=== PATIENT | female | born 1970 | race Caucasian/White ===

== ENCOUNTER 2020-10-09 13:06 | Emergency (ER) | payer BC, OTHER, SELFPAY ==
[2020-10-09 13:42] VITALS: BP 128/70; PULSE 73; RESP 20; TEMP 36.6; O2SAT 98; BMI 38.9
--- NOTE | 2020-10-09 13:49 | HMH.EDUTC ---
[facility] [place] Clinical Impression: Exposure to COVID-19 virus Disposition: Home, Self-Care Condition on Discharge: Good Instructions: Preventing the Spread of Coronavirus Discharge Instructions Additional Instructions: Drink plenty of fluids. Take tylenol for pain or fever. Return if you begin to have difficulty breathing. Follow up with your regular doctor. GO TO THE ER FOR ANY WORSENING SYMPTOMS Referrals: Gwen Loco APRN [Primary Care Provider] - Forms: Work/School Release Time of Disposition: 13:50 Medical Decision Making - Medical Records Medical records reviewed: No: I reviewed the patient's medical records. - Joe Inquiry Pt receiving controlled substance: No Vital Signs: 10/09/20 13:42 Temperature 97.9 F Temperature Source Oral Pulse Rate [Radial] 73 Respiratory Rate 20 Blood Pressure [Right Arm] 128/70 Blood Pressure Mean [Right Arm] 89 Blood Pressure Source [Right Arm] Automatic Cuff Blood Pressure Position [Right Arm] Sitting 02 Sat by Pulse Oximetry 98 Oxygen Delivery Method Room Air Orders (Tests/Meds): ORDERS Category Date Time Status Covid-19 Nasal PCR ([facility]) Routine Lab 10/09/20 13:45 Ordered [facility] [place] HPI - General Stated complaint: covid exposure Time Seen by Provider: 10/09/20 13:49 Mode of Arrival: Ambulatory Source of Information: Patient Limitations: No Limitations Description of Symptoms (Recalled from Triage Doc. by RN): covid test HEENT Symptoms (Recalled from RN notes): No Resp Symptoms (Recalled from RN notes): No Skin Symptoms (Recalled from RN notes): No MS Symptoms (Recalled from RN notes): No Functional Status (Recalled from RN notes): wnl - History of Present Illness Provider Complaint: Her daughter tested positive for covid yesteday. This patient has not had any symptoms so far. - Related Data Allergies Allergy/AdvReac Type Severity Reaction Status Date / Time Penicillins Allergy Verified 10/09/20 13:44 - Worker's Comp Is this a Worker's Comp case?: No [facility] History - Hepatitis A Screen Drug use history?: No High risk sexual behaviors?: No History of sexually transmitted infection?: No Currently employed?: No Childcare worker?: No Do you have indoor plumbing?: Yes Do you have electricity?: Yes Attestation statement:: This patient has been screened for Hepatitis A risk factors. I have reviewed the patient's past medical history: Yes - Social History Alcohol Intake: never Occupational Status: other ROS Obtained: Yes All systems reviewed & no additional complaints - Constitutional Constitutional: Reports system reviewed and no additional complaints, except as docu - Eyes Eyes: Reports system reviewed and no additional complaints, except as docu - ENT Ears, Nose, Mouth, and Throat: Reports system reviewed and no additional complaints, except as docu - Cardiovascular Cardiovascular: Reports system reviewed and no additional complaints, except as docu - Respiratory Respiratory: Yes system reviewed and no additional complaints, except as docu - Gastrointestinal Gastrointestingal: Reports: system reviewed and no additional complaints, except as docu Physical Exam - General General appearance: alert, in no apparent distress - Head Head exam: atraumatic, normocephalic, normal inspection - Eye Eye exam: Present: normal appearance, PERRL, EOMI - ENT ENT exam: Present: normal exam, normal oropharynx, mucous membranes moist, TM's normal bilaterally, normal external ear exam - Neck Neck exam: Present: normal inspection, full ROM, trachea midline. Absent: meningismus, lymphadenopathy - Chest Chest inspection: Present: normal inspection, symmetric chest wall rise. Absent: tenderness - Respiratory Respiratory exam: Present: normal lung sounds bilaterally. Absent: respiratory distress - Cardiovascular Cardiovascular exam: Present: regular rate, normal rhythm. Absent: JVD - Abd
[2020-10-09 14:00] VITALS: BP 128/70; PULSE 73; RESP 20; TEMP 36.6; O2SAT 98
== END 2020-10-09 14:02 | disposition home or self-care (01) ==
PROVIDERS: Emergency Provider Nurse Practitioner Family; PCP Nurse Practitioner
DX: Z20.828 Contact with and (suspected) exposure to other viral communicable diseases (principal)
CPT/HCPCS: 99201; U0003

== ENCOUNTER 2021-01-03 05:26 | Emergency (ER) | payer BC, OTHER, SELFPAY ==
[2021-01-03 05:39] VITALS: BP 140/70; PULSE 78; RESP 18; TEMP 36.9; O2SAT 100; BMI 35.4
--- NOTE | 2021-01-03 05:47 | CT_ITS ---
PROCEDURE: CT ABDOMEN PELVIS WO CON CLINICAL INDICATION: Left flank pain Left flank pain with nausea and vomiting COMPARISON: No exams were available for comparison TECHNIQUE: Axial images obtained with sagittal and coronal reformats. All CT scans at the facility use one or more dose reduction, viz: automated exposure control, ma/kV adjustment per patient size (including targeted exams where dose is matched to indication, i.e. head), or iterative reconstruction technique. FINDINGS: There is a small hiatal hernia. The liver, spleen, adrenal glands, and pancreas have an unremarkable unenhanced CT appearance. 2 mm punctate stone lower pole right kidney. There is mild left hydronephrosis and hydroureter secondary to a 4 mm stone in the distal left ureter approximately 3 cm proximal to the ureterovesical junction. There are multiple pelvic phleboliths. There is an IUD in place. No evidence of appendicitis. There is mild thickening of the lower aspect of the descending colon nonspecific. There is colonic diverticulosis but no evidence of diverticulitis. No acute bony findings. There is a corrugated area within the L2 vertebral body on the right at 17 mm consistent with a hemangioma. IMPRESSION: 4 mm left distal ureteral stone with mild left-sided hydroureteronephrosis Mild thickening of the distal descending colon which may be due to nondistention or mild colitis. Dictated by: Dung Vera MD 01/03/2021 09:17 Dung Vera MD in [place] 01/03/2021 09:17
[2021-01-03 05:59] LABS: Appearance,Urine CLEAR (Clear); Basophils # 0.1 K/mm3 (0-0.2); Basophils % 0.6 % (0.1-2.0); Bilirubin,Urine Negative (Negative); Blood, Urine 3+ (Negative); Color,Urine YELLOW (Yellow); Eosinophils % 0.3 % (0.1-12.0); Glucose,Urine (UA) Negative (Negative); Hematocrit 40.3 % (37.0-47.0); Ketones,Urine TRACE (Negative); Leukocyte Esterase,Urine Negative (Negative); Lymphocytes # 1.4 K/mm3 (0.7-4.5); Mean Corpuscular HGB Conc 32.3 g/dL (31.8-35.4); Mean Corpuscular Hemoglobin 29.7 pg (27.0-31.2); Mean Corpuscular Volume 92.1 fl (81-99); Mean Platelet Volume 7.8 fl (7.4-10.4); Microscopic, Urine URINE MICROSCOPIC (MICROSCOPIC); Monocytes # 0.5 K/mm3 (0.1-1.0); Monocytes % 4.7 % (1.7-9.3); Neutrophils # 7.8 K/mm3 (1.8-7.8); Neutrophils % 80.5 % (37.0-80.0); Nitrate,Urine Negative (Negative); PH,Urine 5.5 (5.0-8.5); Platelet Count 276 K/mm3 (142-424); Protein,Urine TRACE (Negative); Red Blood Count 4.37 M/mm3 (4.20-5.40); Red Cell Distribution Width 12.5 % (11.5-17.5); Specific Gravity, Urine >= 1.030 (1.005-1.030); Urobilinogen,Urine 0.2 EU/dl (0.2); White Blood Count 9.6 K/mm3 (4.8-10.8)
[2021-01-03 06:03] LABS: Urine Pregnancy, HCG Qual. Negative (Negative)
[2021-01-03 06:12] LABS: Alanine Aminotransferase 14 U/L (12-78); Albumin Level 5.1 g/dl (3.5-5.0); Albumin/Globulin Ratio 1.4 (1.1-1.8); Alkaline Phosphatase 90 U/L (38-126); Amylase 61 U/L (30-110); Aspartate Amino Transferase 26 U/L (14-36); Bilirubin,Total 0.5 mg/dl (0.2-1.3); Blood Urea Nitrogen 20 mg/dl (7-17); Calcium 10.3 mg/dl (8.4-10.2); Carbon Dioxide 28 mmol/L (22.0-30.0); Chloride 102 mmol/L (98-107); Creatinine Clearance Estimated 108 mL/min (50-200); Estimated Glomerular Filt Rate 67 ml/min (>60); GFR (African American) 81 ML/MIN (>60); Globulin 3.7 g/dL (1.3-3.2); Glucose 133 mg/dl (74-100); Lipase 73 U/L (23-300); Sodium 135 mmol/L (136-145); Total Protein,Serum 8.8 g/dl (6.3-8.2)
[2021-01-03 06:18] LABS: C-Reactive Protein 1.9 mg/L (0-4)
[2021-01-03 06:22] LABS: Bacteria,Urine Trace /lpf; WBC,Urine Occasional #/hpf (0-3)
[2021-01-03 06:23] LABS: Erythrocyte Sedimentation Rate 16 mm/hr (0-20)
[2021-01-03 06:32] LABS: Procalcitonin 0.047 ng/mL (0.0-2.0)
--- NOTE | 2021-01-03 06:34 | HMH.EDGENADL ---
ED Disposition Clinical Impression: Renal colic on left side Disposition: Home, Self-Care Condition on Discharge: Good Instructions: DI for Kidney Stones Additional Instructions: fluids and use meds and see urology as needed Prescriptions: Tamsulosin HCl [Flomax 0.4mg capsule] 0.4 mg PO HS #7 cap Transmission Status: Pending to [facility] #[id number] Ketorolac Tromethamine [Toradol 10mg tablet] 10 mg PO Q6H 3 Days #12 tab Transmission Status: Pending to [facility] #[id number] Referrals: PCP,No [Primary Care Provider] - - Critical Care Critical Care Time: No Attestation: On 01/03/21, the high probability of a clinically significant, sudden or life threatening deterioration of the following system(s) required my full and direct attention, intervention and personal management. The time I documented below is in addition to time spent performing reported procedures but includes the following listed in this critical care notation. Medical Decision Making - Medical Records Medical records reviewed: Yes: I reviewed the patient's medical records. - Joe Inquiry Pt receiving controlled substance: No Vital Signs: 01/03/21 05:39 Temperature 98.4 F Temperature Source Oral Pulse Rate [Right] 78 Respiratory Rate 18 Blood Pressure [Right Arm] 140/70 Blood Pressure Mean [Right Arm] 93 Blood Pressure Source [Right Arm] Automatic Cuff Blood Pressure Position [Right Arm] Sitting 02 Sat by Pulse Oximetry 100 Oxygen Delivery Method Room Air - Lab Data Lab results reviewed: Yes: I reviewed the patient's lab results. Lab Results 01/03/21 05:49: Urine Color Yellow, Urine Appearance Clear, Urine pH 5.5, Ur Specific [place] >= 1.030, Urine Protein Trace, Urine Glucose (UA) Negative, Urine Ketones Trace, Urine Blood 3+, Urine Nitrate Negative, Urine Bilirubin Negative, Urine Urobilinogen 0.2, Ur Leukocyte Esterase Negative, Urine RBC 10-20, Urine WBC Occasional, Ur Squamous Epith Cells 3-5, Urine Bacteria Trace 01/03/21 05:49: WBC 9.6, RBC 4.37, Hgb 13.0, Hct 40.3, MCV 92.1, MCH 29.7, MCHC 32.3, RDW 12.5, Plt Count 276, MPV 7.8, Neut % (Auto) 80.5 H, Lymph % (Auto) 14.0, [place] % (Auto) 4.7, Eos % (Auto) 0.3, Baso % (Auto) 0.6, Neut # (Auto) 7.8, Lymph # (Auto) 1.4, [place] # (Auto) 0.5, Eos # (Auto) 0.0, Baso # (Auto) 0.1, ESR 16 01/03/21 05:49: Urine HCG, Qual Negative 01/03/21 05:49: Sodium 135 L, Potassium 4.0, Chloride 102, Carbon Dioxide 28, Anion Gap 9.0, BUN 20 H, Creatinine 0.90, Estimated Creat Clear 108, Estimated GFR 67, Est GFR ( Amer) 81, Glucose 133 H, Calcium 10.3 H, Total Bilirubin 0.5, AST 26, ALT 14, Alkaline Phosphatase 90, C-Reactive Protein 1.9, Total Protein 8.8 H, Albumin 5.1 H, Globulin 3.7 H, Albumin/Globulin Ratio 1.4, Amylase 61, Lipase 73 Result diagrams: 01/03/21 05:49 01/03/21 05:49 Orders (Tests/Meds): ED MEDICATIONS Generic Name Dose Route Start Last Admin Trade Name Freq PRN Reason Stop Dose Admin Sodium Chloride 1,000 mls @ 999 mls/hr 01/03/21 06:00 01/03/21 05:50 Sod Chlor 0.9% 1000ml Bag IV 01/03/21 07:00 999 mls/hr .Q1H1M WALTER Administration Discontinued Medications Generic Name Dose Route Start Last Admin Trade Name Freq PRN Reason Stop Dose Admin Ketorolac Tromethamine 30 mg 01/03/21 05:47 01/03/21 05:50 Ketorolac 30mg/Ml Vial IV 01/03/21 05:48 30 mg ONCE ONE Administration Ondansetron HCl 4 mg 01/03/21 05:47 01/03/21 05:50 Ondansetron 4mg/2ml Vial IV 01/03/21 05:48 4 mg ONCE ONE Administration ORDERS Category Date Time Status CT abdomen pelvis wo con Stat Cat Scan 01/03/21 05:47 Taken Amylase Stat Lab 01/03/21 05:49 Results C-Reactive Protein Stat Lab 01/03/21 05:49 Results Comprehensive Metabolic Panel Stat Lab 01/03/21 05:49 Results Lipase Stat Lab 01/03/21 05:49 Results Procalcitonin Stat Lab 01/03/21 05:49 Results - CT Data CT Scan: Abdomen, Pelvis Time Received: 06:[address] R
[2021-01-03 07:06] VITALS: BP 138/68; PULSE 76; RESP 16; TEMP 36.9; O2SAT 99
== END 2021-01-03 07:10 | disposition home or self-care (01) ==
PROVIDERS: Emergency Provider Emergency Medicine
DX: N23 Unspecified renal colic (principal); Z88.0 Allergy status to penicillin
CPT/HCPCS: 74176; 80053; 81001; 81025; 82150; 83690; 84145; 85025; 85651; 86140; 96365; 96375; 99283; J2405

== ENCOUNTER → 2021-03-21 15:30 | Outpatient (CLI) | payer OTHER, SELFPAY ==
--- NOTE | 2021-03-21 15:34 | XR_ITS ---
PROCEDURE: XR KUB CLINICAL INDICATION: ureteral stone COMPARISON: CT CT ABDOMEN PELVIS WO CON from 01/03/2021 FINDINGS: There is calcific density in the left distal ureteral area suspicious for a distal ureteral stone as seen on the previous CT scan. Multiple pelvic phleboliths and an IUD is in place. The lower abdominal image suggest a possible 5 mm stone overlying the lower pole of the right kidney. This however is questionable. IMPRESSION: Suspect left distal ureteral stone. Possible right nephrolithiasis Dictated by: Dung Vera MD 03/21/2021 17:36 Dung Vera MD in [place] 03/21/2021 17:36
== END ==
PROVIDERS: Visit Provider Urology
DX: N20.1 Calculus of ureter (principal)
CPT/HCPCS: 74018

== ENCOUNTER → 2021-04-23 06:46 | Outpatient (CLI) | payer OTHER, SELFPAY ==
--- NOTE | 2021-04-23 06:51 | CT_ITS ---
PROCEDURE: CT ABDOMEN PELVIS WO CON CLINICAL INDICATION: ureteral stone Lt flank pain COMPARISON: CT CT ABDOMEN PELVIS WO CON from 01/03/2021 CR XR KUB from 03/21/2021 TECHNIQUE: Axial images obtained with sagittal and coronal reformats. All CT scans at the facility use one or more dose reduction, viz: automated exposure control, ma/kV adjustment per patient size (including targeted exams where dose is matched to indication, i.e. head), or iterative reconstruction technique. FINDINGS: LOWER THORAX: No acute finding ABDOMEN & PELVIS: The liver, gallbladder, spleen, adrenal glands, and pancreas has an unremarkable unenhanced appearance. A 2 mm nonobstructing stone is present in the lower pole of the right kidney. Previously noted left-sided hydronephrosis has improved. The left distal ureteral calculus as seen on 01/03/2021 has moved slightly distally approximately 1-2 cm proximal to the ureterovesical junction. The calculus measures approximately 6 mm. There is no significant dilatation of the left ureter or renal pelvis. No intestinal obstruction or free air. Unremarkable appearing appendix. There is colonic diverticulosis involving the descending and sigmoid colon no evidence of diverticulitis. There is mild nonspecific thickening of the transverse and descending colon which could be due to nondistention. The there is a small umbilical hernia containing fat. There is an IUD in place. There are multiple pelvic phleboliths. There is a small umbilical hernia which contains fat. No acute bony anomalies apparent. There are mild osteoarthritic changes of the hips. IMPRESSION: 1. 6 mm left distal ureteral calculus just proximal to the ureterovesical junction which is slightly advanced compared to the previous exam. This corresponds to the abnormality noted on the KUB. The left hydronephrosis and hydroureter has resolved. 2. Nonobstructing right renal calculus. 3. Mild thickening of the transverse and descending colon which could be due to nondistention versus colitis. There is colonic diverticulosis without evidence of diverticulitis. Dictated by: Dung Vera MD 04/24/2021 09:51 Dung Vera MD in [place] 04/24/2021 09:51
== END ==
PROVIDERS: PCP Family Medicine; Visit Provider Urology
DX: N20.1 Calculus of ureter (principal)
CPT/HCPCS: 74176

== ENCOUNTER 2021-08-24 19:30 | Emergency (ER) | payer OTHER, SELFPAY ==
[2021-08-24 19:30] VITALS: BP 138/76; PULSE 71; RESP 21; TEMP 36.8; O2SAT 100; BMI 37.2
[2021-08-24 19:31] VITALS: BP 139/98; PULSE 82; RESP 18; TEMP 36.9; O2SAT 99; BMI 37.2
--- NOTE | 2021-08-24 20:15 | CT_ITS ---
PROCEDURE INFORMATION: Exam: CT Abdomen And Pelvis Without Contrast Exam date and time: 08/24/2021 8:15 PM Age: 50 years old Clinical indication: Abdominal pain; Flank; Left lower quadrant (llq); Additional info: Lt flank apin TECHNIQUE: Imaging protocol: Computed tomography of the abdomen and pelvis without contrast. Radiation optimization: All CT scans at this facility use at least one of these dose optimization techniques: automated exposure control; mA and/or kV adjustment per patient size (includes targeted exams where dose is matched to clinical indication); or iterative reconstruction. COMPARISON: CT ABDOMEN PELVIS WO CON 04/23/2021 6:51 AM FINDINGS: Lungs: The visualized lung bases are unremarkable. Liver: Unremarkable noncontrast appearance. Gallbladder and bile ducts: No wall thickening. No calcified stones. No biliary dilation. Pancreas: Unremarkable noncontrast appearance. Spleen: Normal. No splenomegaly. Adrenal glands: Normal. No mass. Kidneys and ureters: There is an 7 x 4 mm calculus at the left ureterovesical junction. There is mild to moderate upstream left ureterectasis and pelvocaliectasis. There is mild asymmetric swelling of the left kidney. This could potentially be further interval migration of the left distal ureteral calculus seen on 04/23/2021, or could be a new calculus. Punctate nonobstructing right lower pole caliceal calculus. No right ureteral calculus or hydronephrosis. Stomach and bowel: There are scattered colonic diverticula, most numerous distally. There is acute diverticulitis of the mid sigmoid colon within the anterior left hemipelvis. There is surrounding fat stranding, but no extraluminal gas or abscess. No upstream colonic or small bowel obstruction. Small hiatal hernia. Appendix: Normal appendix. Intraperitoneal space: No pneumoperitoneum. Trace pelvic free fluid. Inflammatory stranding around the mid sigmoid colon. Vasculature: Unremarkable. No abdominal aortic aneurysm. Lymph nodes: No enlarged lymph nodes. Urinary bladder: No wall thickening. Reproductive: Intrauterine device. There is a 23 mm left ovarian cyst, which is likely benign/physiologic. Bones/joints: No acute fracture. Spondylosis. Hemangioma in the L2 vertebral body. Soft tissues: Small to moderate fat containing umbilical hernia. IMPRESSION: 1. Acute uncomplicated diverticulitis of the mid sigmoid colon. 2. Obstructing 7 x 4 mm calculus at the left ureterovesical junction with mild to moderate upstream hydroureteronephrosis. It is possible this represents continued migration of the previously seen left distal ureteral calculus on CT of 04/23/2021, or it could be a new obstructing stone. In any case, the upstream ureteral and collecting system dilation has increased/worsened since prior. 3. Punctate nonobstructing right lower pole calculus. THIS REPORT CONTAINS FINDINGS THAT MAY BE CRITICAL TO PATIENT CARE. The findings were verbally communicated via telephone conference with SHI FARRIS at 11:25 PM EDT on 08/24/2021. The findings were acknowledged and understood.
[2021-08-24 20:26] LABS: Microscopic, Urine URINE MICROSCOPIC (MICROSCOPIC)
[2021-08-24 20:28] LABS: Basophils # 0.1 K/mm3 (0-0.2); Basophils % 0.6 % (0.1-2.0); Eosinophils # 0.1 K/mm3 (0.0-0.4); Eosinophils % 0.9 % (0.1-12.0); Hematocrit 37.6 % (37.0-47.0); Hemoglobin 12.1 g/dL (12.2-16.2); Lymphocytes # 1.6 K/mm3 (0.7-4.5); Mean Corpuscular HGB Conc 32.2 g/dL (31.8-35.4); Mean Corpuscular Hemoglobin 30.6 pg (27.0-31.2); Mean Corpuscular Volume 94.9 fl (81-99); Mean Platelet Volume 8.4 fl (7.4-10.4); Monocytes # 0.5 K/mm3 (0.1-1.0); Monocytes % 5.1 % (1.7-9.3); Neutrophils # 7.6 K/mm3 (1.8-7.8); Neutrophils % 77.4 % (37.0-80.0); Platelet Count 257 K/mm3 (142-424); Red Blood Count 3.97 M/mm3 (4.20-5.40); Red Cell Distribution Width 12.8 % (11.5-17.5); White Blood Count 9.8 K/mm3 (4.8-10.8)
[2021-08-24 20:38] LABS: Appearance,Urine CLEAR (Clear); Blood, Urine 3+ (Negative); Color,Urine YELLOW (Yellow); Glucose,Urine (UA) Negative (Negative); Ketones,Urine 2+ (Negative); Leukocyte Esterase,Urine 1+ (Negative); Nitrate,Urine Negative (Negative); Protein,Urine 1+ (Negative); Specific Gravity, Urine 1.025 (1.005-1.030); Urobilinogen,Urine 0.2 EU/dl (0.2)
[2021-08-24 20:40] LABS: Urine Pregnancy, HCG Qual. Negative (Negative)
[2021-08-24 20:42] LABS: Chloride 100 mmol/L (98-107); Sodium 139 mmol/L (136-145)
[2021-08-24 20:44] LABS: Alanine Aminotransferase 12 U/L (12-78); Aspartate Amino Transferase 27 U/L (14-36); Bilirubin,Total 0.8 mg/dl (0.2-1.3); Blood Urea Nitrogen 11 mg/dl (7-17); Creatinine Clearance Estimated 146 mL/min (50-200); Estimated Glomerular Filt Rate 89 ml/min (>60); GFR (African American) 108 ML/MIN (>60)
[2021-08-24 20:45] LABS: Albumin Level 4.6 g/dl (3.5-5.0); Albumin/Globulin Ratio 1.3 (1.1-1.8); Alkaline Phosphatase 75 U/L (38-126); Calcium 9.5 mg/dl (8.4-10.2); Carbon Dioxide 26 mmol/L (22.0-30.0); Globulin 3.5 g/dL (1.3-3.2); Glucose 103 mg/dl (74-100); Total Protein,Serum 8.1 g/dl (6.3-8.2)
--- NOTE | 2021-08-24 20:48 | HMH.EDUROGF ---
ED Disposition Clinical Impression: Renal colic on left side, Diverticulitis Disposition: Home, Self-Care Condition on Discharge: Good Instructions: Kidney Stones -- Adult, DI for Diverticulitis Additional Instructions: fluids and see pcp and urology for follow up Prescriptions: metroNIDAZOLE [Flagyl 500mg Tablet] 500 mg PO TID #21 tab Transmission Status: Pending to [facility] #[id number] levoFLOXacin [Levaquin 500mg tab] 500 mg PO DAILY #7 tab Transmission Status: Pending to [facility] #[id number] Referrals: Provider,Referral, [Primary Care Provider] - - Critical Care Critical Care Time: No Attestation: On 08/24/21, the high probability of a clinically significant, sudden or life threatening deterioration of the following system(s) required my full and direct attention, intervention and personal management. The time I documented below is in addition to time spent performing reported procedures but includes the following listed in this critical care notation. Medical Decision Making - Medical Records Medical records reviewed: Yes: I reviewed the patient's medical records. - Joe Inquiry Pt receiving controlled substance: No Vital Signs: 08/24/21 19:30 08/24/21 19:31 Temperature 98.3 F 98.4 F Temperature Source Oral Oral Pulse Rate [Left Brachial] 71 82 Respiratory Rate 21 18 Blood Pressure [Left Arm] 138/76 139/98 H Blood Pressure Mean [Left Arm] 96 111 Blood Pressure Source [Left Arm] Automatic Cuff Blood Pressure Position [Left Arm] Sitting 02 Sat by Pulse Oximetry 100 99 Oxygen Delivery Method Room Air - Lab Data Lab results reviewed: Yes: I reviewed the patient's lab results. Lab Results 08/24/21 20:00: Urine Color Yellow, Urine Appearance Clear, Urine pH 6.0, Ur Specific [place] 1.025, Urine Protein 1+, Urine Glucose (UA) Negative, Urine Ketones 2+, Urine Blood 3+, Urine Nitrate Negative, Urine Bilirubin 2+ A, Urine Urobilinogen 0.2, Ur Leukocyte Esterase 1+ A, Urine RBC 20-50, Urine WBC 5-10, Ur Squamous Epith Cells 3-5, Urine Bacteria Trace 08/24/21 20:00: Urine HCG, Qual Negative 08/24/21 20:06: WBC 9.8, RBC 3.97 L, Hgb 12.1 L, Hct 37.6, MCV 94.9, MCH 30.6, MCHC 32.2, RDW 12.8, Plt Count 257, MPV 8.4, Neut % (Auto) 77.4, Lymph % (Auto) 16.0, [place] % (Auto) 5.1, Eos % (Auto) 0.9, Baso % (Auto) 0.6, Neut # (Auto) 7.6, Lymph # (Auto) 1.6, [place] # (Auto) 0.5, Eos # (Auto) 0.1, Baso # (Auto) 0.1, ESR 118 H 08/24/21 20:06: Sodium 139, Potassium 4.0, Chloride 100, Carbon Dioxide 26, Anion Gap 17.0 H, BUN 11, Creatinine 0.70, Estimated Creat Clear 146, Estimated GFR 89, Est GFR ( Amer) 108, Glucose 103 H, Calcium 9.5, Total Bilirubin 0.8, AST 27, ALT 12, Alkaline Phosphatase 75, C-Reactive Protein 78.1 H, Total Protein 8.1, Albumin 4.6, Globulin 3.5 H, Albumin/Globulin Ratio 1.3, Procalcitonin 0.059 Result diagrams: 08/24/21 20:06 08/24/21 20:06 Orders (Tests/Meds): ED MEDICATIONS Generic Name Dose Route Start Last Admin Trade Name Freq PRN Reason Stop Dose Admin Sodium Chloride 1,000 mls @ 999 mls/hr 08/24/21 21:45 08/24/21 21:38 Sod Chlor 0.9% 1000ml Bag IV 08/24/21 22:45 999 mls/hr .Q1H1M WALTER Administration Discontinued Medications Generic Name Dose Route Start Last Admin Trade Name Freq PRN Reason Stop Dose Admin Sodium Chloride 1,000 mls @ 999 mls/hr 08/24/21 20:30 08/24/21 20:29 Sod Chlor 0.9% 1000ml Bag IV 08/24/21 21:30 999 mls/hr .Q1H1M WALTER Administration Ketorolac Tromethamine 30 mg 08/24/21 20:16 08/24/21 20:29 Ketorolac 30mg/Ml Vial IV 08/24/21 20:17 30 mg ONCE ONE Administration Ondansetron HCl 4 mg 08/24/21 20:16 08/24/21 20:29 Ondansetron 4mg/2ml Vial IV 08/24/21 20:17 4 mg ONCE ONE Administration ORDERS Category Date Time Status CT abdomen pelvis wo con Stat Cat Scan 08/24/21 20:15 Taken Urine Culture Stat Micro 08/24/21 20:00 Received - CT Data CT Scan: Abdomen, Pelvis T
[2021-08-24 20:50] LABS: C-Reactive Protein 78.1 mg/L (0-4)
[2021-08-24 21:00] LABS: Bilirubin,Urine 2+ (Negative)
[2021-08-24 21:03] LABS: Bacteria,Urine Trace /lpf; RBC,Urine 20-50 #/hpf (0-3)
[2021-08-24 21:06] LABS: Erythrocyte Sedimentation Rate 118 mm/hr (0-20)
[2021-08-24 21:36] LABS: Procalcitonin 0.059 ng/mL (0.0-2.0)
[2021-08-24 23:50] VITALS: BP 129/82; PULSE 70; RESP 18; TEMP 36.9; O2SAT 99
== END 2021-08-24 23:52 | disposition home or self-care (01) ==
PROVIDERS: Emergency Provider Emergency Medicine
DX: K57.92 Diverticulitis of intestine, part unspecified, without perforation or abscess without bleeding (principal); N23 Unspecified renal colic
CPT/HCPCS: 74176; 80053; 81001; 81025; 84145; 85025; 85651; 86140; 87086; 96365; 96366; 96375; 99283; J2405

== ENCOUNTER → 2021-09-10 13:16 | Outpatient (CLI) | payer OTHER, SELFPAY | PROVIDERS: Visit Provider Urology | DX: Z01.812 Encounter for preprocedural laboratory examination (principal); Z11.52 Encounter for screening for COVID-19; N20.1 Calculus of ureter | CPT/HCPCS: C9803; U0003; U0005 ==

== ENCOUNTER 2021-09-13 07:36 | Day surgery (SDC) | payer OTHER, SELFPAY ==
[2021-09-09 12:42] VITALS: BMI 37.2
[2021-09-13] VITALS (9 sets, daily range): BP systolic 110–130; BP diastolic 59–83; PULSE 56–66; RESP 14–18; TEMP 36.2–36.9; O2SAT 95–100
--- NOTE | 2021-09-13 | XR_ITS ---
PROCEDURE: XR KUB CLINICAL INDICATION: ureterscopy COMPARISON: CR XR KUB from 03/21/2021 FINDINGS: Fluoroscopy time: 0.38 minutes. 1 image is submitted with the C-arm showing a left ureteral scope and guidewire in place IMPRESSION: Status post left ureteroscopy with fluoroscopic assistance Dictated by: Dung Vera MD 09/13/2021 11:37 Dung Vera MD in [place] 09/13/2021 11:37
[2021-09-13 08:41] LABS: Urine Pregnancy, HCG Qual. Negative (Negative)
--- NOTE | 2021-09-13 09:16 | P.PN_ITS ---
[facility] Anesthesia Checklist - Patient Identification Patient Identification: Arm Band, Verbal (Name & ) - Structural Data Admitted From: Home Planned Operative Procedure/s: Left Ureteroscopy Consent for Planned Operative Procedure(s) Verified: Yes Verified Documents: Surgical Consent - NPO Status Verified Time NPO: 00:00 - Chart Verification Results Verified: HCG - Additional verifications Anesthesia Reactions: No Hx Blood Transfusions: No Blood Transfusion Reaction: No - Cardiovascular Assessment Heart Sounds: S1 & S2 Pulse Rhythm: Regular - Airway Assessment C-Spine Mobility Assessed: Yes TMJ Mobility Assessed: Yes Dentition: Good Dentition - Neurological Assessment Level of Consciousness: Awake, Alert, Appropriate - Anesthesia Plan Anesthesia Risk discussed: Yes ASA Class: II Anesthesia Type: General [facility] History Medical History: Reports:: Kidney Stones Denies:: Cancer, Diabetes Mellitus Type 1, Diabetes Mellitus Type 2, Internal Pacemaker, MRSA, Seizures *Have you ever received a pneumonia vaccine?: No *Have you received a flu vaccine this season?: No Other Medical History: Denies: Blood Transfusion Reaction Anesthesia experience/problems:: no family history Other Surgeries: Yes: No Previous Surgery. No: Pacemaker Amputation: No Fractures: No - *Social History Last grade of school completed: High school graduate Smoking Status: Never smoker Alcohol Intake: never Substance Use Type: denies use *Occupational Status:: employed Housing: house Household Members: spouse *Travel in the last 8 weeks: Inside the [facility] Family Hx:: Cancer, Diabetes, Heart Attack
--- NOTE | 2021-09-13 09:47 | HMH.OPNOTE ---
Date of procedure: 09/13/21 Pre-op Diagnosis:: Left distal ureteral stone Post-op Diagnosis:: No evidence of ureteral stone today. Procedure performed:: Left ureteroscopy Surgeon:: Mohsen Jurado MD RADIO TELEVISION ANNOUNCER:: Other (santhosh) Anesthesia: LMA Estimated blood loss (mL): 0 Clinical Note:: 51-year-old white female with history of a left distal ureteral calculus. Her most recent CT scan on August 24 showed a 4 mm stone at the distal ureter. She states she does not have any discomfort for a couple of weeks. Preoperative KUB reveals possible calcification in the region of the left UVJ. Seems a little lower than expected. We discussed the fact that she may have already passed it but she elects to proceed with the procedure to make sure. Operative findings:: No evidence of ureteral stone today on ureteroscopy. Operative note:: Patient taken to the operating room after informed consent was obtained. Placed on the operating table in the supine position. General anesthesia administered. Preoperative antibiotics and sequential compression devices placed. She was then placed into the dorsal lithotomy position and prepped and draped in the standard surgical fashion. A 22 Hira passed into the urethra and the bladder examined in a systematic fashion. It was normal. The ureteral orifices in their normal anatomic position and were of normal position and clear efflux of urine noted from each. A 0.035 guidewire was passed through the scope and into the left ureteral orifice and under fluoroscopy passed into the left renal pelvis without resistance. The scope then removed and the flexible ureteroscope was passed over the wire into the ureter without difficulty. The wire was removed and the scope was passed to the proximal ureter and then ureter investigated on the way out and there was no evidence of stones in the course of the ureter. Scope removed patient tolerated procedure well Urojet placed into the urethra for comfort measures. Condition: stable Disposition: PACU Specimens:: None Complications:: None
--- NOTE | 2021-09-13 10:07 | HMH.ANESI ---
[facility] Anesthesia Record Part I Intake, IV Amount: 200 Estimated blood loss (mL): 1 Urine output (mL): 0 Blood Pressure: 110/61 SaO2: 95 Pulse Rate: 60 Respiratory Rate: 14 Temperature: 97.1 F Patient is:: Drowsy Stable to PACU at:: 09:30
--- NOTE | 2021-09-13 10:32 | PC.NURSE ---
958-detailed report given to JULIANNE Bingham at bedside 1000-pt transported to post op via stretcher w/sin rails up and left in care of JULIANNE Bingham with bed locked in lowest position, vss, pt stable
--- NOTE | 2021-09-13 11:20 | P.PN_ITS ---
[facility] Anesthesia Record Part II Discharge Time: 10:00 Destination: home PACU nurse assessment reviewed?: Yes Patient Condition:: Good Anesthesia Complications:: None none Swallowing reflex intact?: Yes Cyanosis?: No Blood Pressure: 114/77 Pulse Rate: 56 Temperature: 97.3 F Mental Status: Alert & Oriented Pain level:: 0 Nausea and/or vomitting:: None Intake, IV Amount: 0
== END 2021-09-13 10:30 | disposition home or self-care (01) ==
LOC: OR 07:37
PROVIDERS: Visit Provider Urology
PROC: (CPT 52352; principal; 2021-09-13 09:00)
DX: N20.1 Calculus of ureter (principal); Z80.9 Family history of malignant neoplasm, unspecified; Z83.3 Family history of diabetes mellitus; Z82.49 Family history of ischemic heart disease and other diseases of the circulatory system; Z88.0 Allergy status to penicillin
CPT/HCPCS: 52351; 74018; 76000; 81025; 96374; J2405

== ENCOUNTER → 2021-09-13 08:08 | Outpatient (CLI) | payer OTHER, SELFPAY ==
--- NOTE | 2021-09-13 08:12 | XR_ITS ---
PROCEDURE: XR KUB CLINICAL INDICATION: URETERAL STONE COMPARISON: CR XR KUB from 03/21/[address] ABDOMEN PELVIS WO CON from 08/24/2021 FINDINGS: Nonspecific nonobstructive bowel gas pattern. Multiple pelvic phleboliths. There is an IUD in place. Previously there was a stone at the left UPJ on the CT scan of 08/24/2021. This does not appear to be present at this time. IMPRESSION: Left UPJ stone is not identified in presumably passed.. Dictated by: Dung Vera MD 09/13/2021 08:32 Dung Vera MD in [place] 09/13/2021 08:32
== END ==
PROVIDERS: Visit Provider Urology
DX: N20.1 Calculus of ureter (principal)
CPT/HCPCS: 74018

== ENCOUNTER 2022-08-28 11:54 | Emergency (ER) | payer OTHER, SELFPAY ==
[2022-08-28 12:20] VITALS: BP 130/81; PULSE 63; RESP 18; TEMP 36.7; O2SAT 99; BMI 34.8
--- NOTE | 2022-08-28 12:32 | XR_ITS ---
FINAL REPORT CLINICAL HISTORY: low back pain with right sided sciatica FINDINGS: AP and lateral views were obtained. There is no acute fracture. There is no malalignment. The disc spaces are maintained. There is an IUD in the mid pelvis. IMPRESSION: No acute process. Reviewed, Interpreted and Dictated by Ivan Rodriguez III, MD Transcribed by Félix Hall Authenticated and [facility]
--- NOTE | 2022-08-28 12:33 | EXP.UTC ---
Discharge Plan Disposition Patient Disposition: Home, Self-Care Condition: Good Prescriptions Prescriptions: New etodolac 200 mg capsule 200 mg PO Q8H PRN (Reason: pain) Qty: 20 0RF cyclobenzaprine 10 mg tablet 10 mg PO TID PRN (Reason: muscle spasm) Qty: 15 0RF Referrals Follow up/Referrals: Mamta Bender APRN [Primary Care Provider] - See instructions Activity Restrictions/Add. Instructions Additional Instructions/Restrictions: *Etodolac joshua 8 hours with meal as needed for pain/inflammation *Remember you had a Toradol shot in the clinic today, which is similar to Etodolac dont take until 8 hrs *Not additional anti-inflammatory like Ibuprofen, motrin, aleve, advil with the above amount of Etodolac. You can still take Tylenol every 4 hours as needed if you need something else for pain *Ice 20 minutes every 2 hours for the first 48 hours after the initial injury followed by moist heat every 20 minutes 3-4 times a day to affected area *Muscle relaxer every 8 hours as needed for muscle spasms but remember, it WILL cause drowsiness You cannot take it and drive, operate machinery or care for small children. *Keep this area active, no movement leads to more stiffness, However take it easy and avoid heavy lifting pushing or pulling *Follow up with you family doctor if no improvement for further treatment ? Clinical Impressions Clinical Impression: Acute low back pain with sciatica Qualifiers: Back pain laterality: right Sciatica laterality: sciatica of right side Qualified Code(s): M54.41 - Lumbago with sciatica, right side Instructions Patient Instructions: Low Back Pain, DI for Sciatica Discharge ED Provider: Alem Shepard [facility] General Stated complaint: RT Lower back pain into leg Time Seen by Provider: 08/28/22 12:33 History of Present Illness Provider Complaint: Patient states that she has been having achy like pain in her lower back going into her right upper leg State that she seen her PCP for it and they give her a steriod injection and some oral steriods but they havent helped much so today when she was still having pain she came in to get checked Denies known injury to back State that pain is in lower back and goes into left buttock area and into left leg Related Data Previous Rx's Medication Instructions Recorded cyclobenzaprine 10 mg tablet 10 mg PO TID PRN muscle spasm #15 08/28/22 tabs etodolac 200 mg capsule 200 mg PO Q8H PRN pain #20 caps 08/28/22 Allergies Allergy/AdvReac Type Severity Reaction Status Date / Time Penicillins Allergy Verified 09/13/21 08:36 [facility] Medical History (Updated 08/28/22 @ 13:24 by Aelm Shepard APRN) Kidney stone Social History (Updated 08/28/22 @ 12:36 by Diana Saunders RN) Smoking Status: Never smoker second hand exposure: No alcohol intake: never substance use type: denies use current occupational status: employed Travel in the last 8 weeks: Inside the [place] household members: spouse housing: house current occupation: [employer] officer current occupational exposures/hazards: No caffeine: Yes ROS Obtained: Yes All systems reviewed & no additional complaints except as documented and Yes Systems reviewed as appropriate & no additional complaints except as documented Constitutional Constitutional: Reports system reviewed and no additional complaints, except as documented, Reports as per HPI, Denies body ache, Denies chills and Denies fever(s) ENT Ears, Nose, Mouth, and Throat: Reports system reviewed and no additional complaints, except as documented and Reports as per HPI Cardiovascular Cardiovascular: Reports system reviewed and no additional complaints, except as documented and Reports as per HPI Respiratory Respiratory: Reports system reviewed and no additional complaints, except as documented and Reports as per HPI Musculoskeletal Musculoskeletal: Reports
[2022-08-28 13:28] VITALS: BP 130/81; PULSE 63; RESP 18; TEMP 36.7; O2SAT 99
== END 2022-08-28 13:40 | disposition home or self-care (01) ==
PROVIDERS: Emergency Provider Nurse Practitioner; PCP Nurse Practitioner Family
DX: M54.41 Lumbago with sciatica, right side (principal)
CPT/HCPCS: 72100; 96372; 99212; G0463

== ENCOUNTER 2023-03-25 09:20 | Emergency (ER) | payer OTHER, SELFPAY ==
[2023-03-25 09:40] VITALS: BP 131/84; PULSE 76; RESP 18; TEMP 37; O2SAT 98; BMI 37.4
--- NOTE | 2023-03-25 09:53 | EXP.UTC ---
Discharge Plan Disposition Patient Disposition: Home, Self-Care Condition: Good Prescriptions Prescriptions: New hydroxyzine pamoate 25 mg capsule 25 mg PO TID PRN (Reason: itching) Qty: 30 0RF hydrocortisone 0.5 % cream 1 applic topical QID PRN (Reason: skin irritation) Qty: 28.4 0RF Rx Instructions: apply to area as directed No Action etodolac 200 mg capsule 200 mg PO Q8H PRN (Reason: pain) Qty: 20 0RF cyclobenzaprine 10 mg tablet 10 mg PO TID PRN (Reason: muscle spasm) Qty: 15 0RF Referrals Follow up/Referrals: Mamta Bender APRN [Primary Care Provider] - See instructions Activity Restrictions/Add. Instructions Additional Instructions/Restrictions: Use topical hydrocortisone when rash appears Take oral Hydroxyzine as directed for itching Follow up with your Family Doctor if no improvment or any worsening of symptoms Return if needed Straight to ER if needed Clinical Impressions Clinical Impression: Itching Instructions Patient Instructions: Hydroxyzine, Hydrocortisone Discharge ED Provider: Alem Shepard [facility] General Stated complaint: Possible hives on both arms Mode of Arrival: Ambulatory Source of Information: Patient Limitations: No Limitations Time Seen by Provider: 03/25/23 09:53 Description of Symptoms (Recalled from Triage Doc. by RN): pt c/o hives bilaterally on her arms ongoing x6wks HEENT Symptoms (Recalled from RN notes): No Resp Symptoms (Recalled from RN notes): No Skin Symptoms (Recalled from RN notes): Yes MS Symptoms (Recalled from RN notes): No Functional Status (Recalled from RN notes): wnl History of Present Illness Provider Complaint: Patient states that she has been under alot of stress over the last couple of months but she has been having hives and itching on both arms that comes and goes for about 4-5 weeks States that she has scratched sores on arms from the itching States that nothing has changed thinks it may be her nerves causing the hives so today when she was still itching she came in Related Data Previous Rx's Medication Instructions Recorded cyclobenzaprine 10 mg tablet 10 mg PO TID PRN muscle spasm #15 08/28/22 tabs etodolac 200 mg capsule 200 mg PO Q8H PRN pain #20 caps 10/06/22 hydrocortisone 0.5 % topical cream 1 applic topical QID PRN skin 03/25/23 irritation #28.4 grams hydroxyzine pamoate 25 mg capsule 25 mg PO TID PRN itching #30 caps 03/25/23 Allergies Allergy/AdvReac Type Severity Reaction Status Date / Time Penicillins Allergy Verified 03/25/23 09:43 Worker's Comp Is this a Worker's Comp case?: [facility] Disclaimer: The information contained in this section may have been updated after the patient was seen, as this information can be updated by other users. 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 occupational exposures/hazards: No caffeine: Yes ROS Obtained: Yes All systems reviewed & no additional complaints except as documented and Yes Systems reviewed as appropriate & no additional complaints except as documented Constitutional Constitutional: Reports system reviewed and no additional complaints, except as documented and Reports as per HPI ENT Ears, Nose, Mouth, and Throat: Reports system reviewed and no additional complaints, except as documented and Reports as per HPI Cardiovascular Cardiovascular: Reports system reviewed and no additional complaints, except as documented and Reports as per HPI Respiratory Respiratory: Reports system reviewed and no additional complaints,
[2023-03-25 10:10] VITALS: BP 131/84; PULSE 76; RESP 18; TEMP 37
== END 2023-03-25 10:10 | disposition home or self-care (01) ==
PROVIDERS: Emergency Provider Nurse Practitioner; PCP Nurse Practitioner Family
DX: L29.9 Pruritus, unspecified (principal)
CPT/HCPCS: 99212; 99214; G0463